=== PATIENT | female | born 1950 | race Caucasian/White ===

== ENCOUNTER → 2019-02-14 | Outpatient (CLI) | payer MEDICARE, BC ==
[~2019-02-14] MED LIST: CALC-854 PO; CELE-1 PO; CELE100C4 PO; CELEBREX PO; CHOL200074 PO; DEXM10TA PO; DEXT10CA PO; DEXT10CA8 PO; DIPH0.5S2 IM; ESTR-42 PO; Instaflex PO; MENT118G TOP; MULT-19 PO; OMEG-36 PO; SOOTHE EYE OP; VITA-200 PO; [UNRECOGNIZED DRUG - CODE] PO; [UNRECOGNIZED DRUG - CODE] TOP
--- NOTE | 2019-02-14 10:08 | RADIOLOGY IMAGING REPORT ---
FACILITY: [facility] [place] PATIENT NAME: Flora Peraza : 1950 MR: [id number] V: [id number] EXAM DATE: ORDERING PHYSICIAN: SARAHY GUERRA TECHNOLOGIST: Location: [facility] Patient: Flora Peraza : 1950 Visit/Account:[id number] Date of Sevice: 02/14/2019 BONE DENSITY HISTORY: screening DEXA Scan Clinical history: Osteopenia. Comparison: DEXA scan from 04/12/2012. LUMBAR SPINE: The bone mineral density (BMD) measured from L1-L4 correlates with a Z-score 1.6 and a T-score of -0 .1 which is Normal as defined by the World Health Organization. The corresponding risk of fracture i n the lumbar spine is Not increased compared with a young adult reference population. This value has improved by 4.9 % since the prior study. More than 5% change is considered significant. HIP: Bone mineral density (BMD) measured in the Left total hip region correlates with a Z-score 1.4 and a T-score of 0.0 which is Normal as defined by the World Health Organization. The corresponding risk o f fracture in the hip is Not increased compared with a young adult reference population. This value h as improved by 2.9 % since the prior study. More than 5% change is considered significant. Bone mineral density (BMD) measured in the Femoral Neck region measures 1.006 g/cm2. T score of 0.0. Normal. No increased risk for fracture. IMPRESSION: 1. Lumbar spine: Normal. There has been improvement by 4.9% in the bone mineral density since the p revious exam. 2. Left Total Hip: Normal. There has been improvement by 2.9% in the bone mineral density since the previous exam. 3. Femoral Neck: Bone Mineral Density is 1.006 g/cm2 . Normal The next DEXA scan of this patient should include the following sites: L1-L4 and the left hip. FRAX? WHO Fracture Risk Assessment Tool link: <http://www.shef.ac.uk/FRAX/tool.jsp?locationValue=9> PLEASE NOTE: 1) The World Health Organization defines low BMD as follows: T-score Normal > -1 Osteopenia < -1 and > -2.5 Osteoporosis < -2.5 without fractures Established osteoporosis < -2.5 with fractures 2) In general, you may wish to consider: Diagnosis Treatment Follow-up DEXA Normal BMD Prevention 2-3 years Osteopenia Prevention/therapy 1-2 years Osteoporosis Therapy Yearly 3) Fracture risk estimated from the T-score is more accurate for vertebral fractures (often spontane ous) than for hip fractures. Report Dictated By: Agustin Bello MD at 02/14/2019 10:00 AM Report E-Signed By: Agustin Bello MD at 02/14/2019 10:03 AM WSN:[email or web address]
--- NOTE | 2019-02-14 16:17 | RADIOLOGY IMAGING REPORT ---
FACILITY: [facility] PATIENT NAME: KESHIA GRIJALVA : [id number] MR: [id number] V: [id number] EXAM DATE: ORDERING PHYSICIAN: SARAHY GUERRA TECHNOLOGIST: Zeina Griffith PROCEDURE: BILATERAL DIGITAL SCREENING MAMMOGRAM WITH CAD ASSISTED INTERPRETATION & 3D TOMOSYNTHESIS WITH BREAST IMPLANTS REASON FOR STUDY: Screening FAMILY HISTORY OF BREAST CANCER: None. PERSONAL HISTORY: Left breast aspiration 1972 benign. Bilateral augmentation 2012. VIEWS OBTAINED: 2D & 3D full field CC & MLO, Bernarda displaced CC and MLO. Bilateral 2D full field and CC and MLO, including both breast implants. BREAST DENSITY: The breasts are heterogeneously dense which may obscure small masses. MAMMOGRAM FINDINGS: There are no mass lesions, architectural distortions, or clustering of suspicious microcalcifications. No interval change when compared to the previous study. The breast implants are symmetric and well expanded. IMPRESSION: BIRADS 1: Negative. DIAGNOSTIC CATEGORY 1--NEGATIVE. RECOMMENDATIONS: ROUTINE MAMMOGRAM AND CLINICAL EVALUATION IN 1 YEAR. Dictated by: Steve Bello M.D. on 02/14/2019 at 12:57 Transcribed by: ITA on 02/14/2019 at 14:34 Approved by: Steve Bello M.D. on 02/14/2019 at 16:16 [facility]
== END ==
LOC: MAMO 01:43
PROVIDERS: ATTEND Family Medicine
DX: Z13.820 Encounter for screening for osteoporosis (principal); Z12.31 Encounter for screening mammogram for malignant neoplasm of breast; Z78.0 Asymptomatic menopausal state; Z98.82 Breast implant status
CPT/HCPCS: 77063; 77067; 77080